=== PATIENT | male | born 1980 | race Caucasian/White ===

== ENCOUNTER 2017-07-08 07:33 | Inpatient (IN) | payer MEDICAID ==
[~2017-07-08] VITALS: Ht 170.2 cm; Wt 95.3 kg
[2017-07-08] VITALS: BP 117/69
--- NOTE | 2017-07-08 07:36 | NUR ---
PT BIB RA C/O R NECK/CLAVICLE SWELLING AND PAIN, WHICH APPEARS TO BE AN ABSCESS, THAT PT STATES HE THINKS IS A SPIDER BITE AND REPORTS HAS BEEN GETTING PROGRESSIVELY WORSE FOR 3 DAYS. SITE IS HOT AND TENDER. RESP EVEN UNLABORED. NO DIFFICULTY WITH SPEECH OR SWALLOWING. SKIN WARM DRY. NO OTHER COMPLAINTS. IN ER BED 13.
[2017-07-08] MEDS ORDERED: ONDANSETRON HCL/PF 4 MG/2 ML VIAL ONE (07:45)
[2017-07-08] MEDS ORDERED: MORPHINE SULFATE INJ 4 MG/ML DISP.SYRIN ONE ×2 (07:46→09:41)
[2017-07-08] MEDS ORDERED: IV NS 0.9% 1,000 ML BAG IV ONE (08:00)
[2017-07-08] MEDS ORDERED: MORPHINE SULFATE INJ 2 MG/ML DISP.SYRIN IV ONE (08:00)
[2017-07-08] MEDS ORDERED: VANCOMYCIN 1 GM in IV D5W 250 ML IV ONE (08:00)
[2017-07-08] MEDS ORDERED: PIPERACILLIN /TAZOBACTAM 3.375 G in IV D5W 50 ML IV ONE (08:00)
[2017-07-08] MEDS ORDERED: ONDANSETRON HCL/PF 4 MG/2 ML VIAL IVP ONE (08:00)
[2017-07-08 08:18] LABS: BASOPHILS % (AUTO) 0.1 % (0.0-2.0); EOSINOPHILS % (AUTO) 0.1 % (0.0-6.0); HEMATOCRIT 43 % (39-51); HEMOGLOBIN 14.4 g/dL (13.5-17.5); LYMPHOCYTES # (AUTO) 1.4 /CMM (0.8-4.8); LYMPHOCYTES % (AUTO) 9.3 % (20.0-44.0); MEAN CORPUSCULAR HGB CONC 34 g/dl (31.0-36.0); MEAN CORPUSCULAR VOLUME 85 fL (80-96); MONOCYTES # (AUTO) 1.1 /CMM (0.1-1.30); MONOCYTES % (AUTO) 7.4 % (2.0-12.0); NEUTROPHILS # (AUTO) 12.2 /CMM (1.8-8.9); NEUTROPHILS % (AUTO) 83.1 % (43.0-81.0); PLATELET COUNT (AUTO) 471 /CMM (150-450); RDW COEFFICIENT OF VARIATION 13.2 (11.5-15.0); RED BLOOD CELL COUNT(AUTO) 5.02 MIL/uL (4.5-6.0); WHITE BLOOD COUNT (AUTO) 14.6 K/uL (4.3-11.0)
[2017-07-08 08:23] LABS: CALCIUM, SERUM 8.8 mg/dL (8.5-10.1); CREATININE 0.9 mg/dL (0.6-1.3); POTASSIUM 3.8 mmol/L (3.5-5.1)
[2017-07-08] MEDS ORDERED: PIPERACILLIN /TAZOBACTAM 3.375 G VIAL IV ONE (08:26)
[2017-07-08] MEDS ORDERED: VANCOMYCIN 1 GM VIAL ONE (08:26)
[2017-07-08 08:41] LABS: INR 0.98 (0.87-1.13)
[2017-07-08] MEDS ORDERED: IOHEXOL-300 100 ML VIAL IV ONE (08:41)
[2017-07-08] MEDS ORDERED: IV NS 0.9% 250 ML IV ONE (08:42)
[2017-07-08] MEDS ORDERED: CT SWABBABLE VALVE TRANS SET 1 EA INFUS.SET MC ONE (08:42)
--- NOTE | 2017-07-08 09:25 | NUR ---
LEFT MESSAGE WITH DR [employer] ASKING FOR CALLBACK
--- NOTE | 2017-07-08 09:32 | NUR ---
DR MEMBRENO ON PHONE WITH DR HUBBARD
--- NOTE | 2017-07-08 09:33 | NUR ---
panel on-call paged
--- NOTE | 2017-07-08 09:35 | NUR ---
REPORT GIVEN TO JULISSA CHRISTENSEN FOR ADMISSION
[2017-07-08] MEDS ORDERED: MORPHINE SULFATE INJ 4 MG/ML DISP.SYRIN IV STA (09:40)
--- NOTE | 2017-07-08 09:52 | NUR ---
PT TRANSPORTED TO [facility] IN STABLE CONDITION VIA STRETCHER
[2017-07-08 10:30] VITALS: BP 129/81
[2017-07-08] MEDS ORDERED: MAGNESIUM HYDROXIDE 30 ML UDC PO PRN (10:30)
[2017-07-08] MEDS ORDERED: HYDROCODONE/APAP 5/325MG 1 EACH TABLET PO PRN (10:30)
[2017-07-08] MEDS ORDERED: Z GUARD REMEDY 2 OZ OINT TP PRN (10:30)
[2017-07-08] MEDS ORDERED: ONDANSETRON HCL/PF 4 MG/2 ML VIAL IVP PRN (10:30)
[2017-07-08] MEDS ORDERED: MAG HYDROX/AL HYDROX/SIMETH 30 ML UDC PO PRN (10:30)
[2017-07-08] MEDS ORDERED: ACETAMINOPHEN 325 MG TABLET PO PRN (10:30)
--- NOTE | 2017-07-08 10:30 | NUR ---
RN NOTE RECEIVED PT ON BED AOX4, NO SOB, CO PAIN IN HIS NECK, R SIDE NECK AND SHOULDER SWOLLEN, TENDER, WARM, REDNESS, PAIN LEVEL 10/10. IV SITE INTACT, INFUSING BOLUS AND VANCOMYCIN. PT CLAIMS TO BE HOMELESS AND LIVING IN THE [facility]. WOULD LIKE REFERRAL TO A [facility] UPON DISCHARGE. SAFETY MEASURES IMPLEMENTED, CALL LIGHT WITHIN REACH, WILL MONITOR.
[2017-07-08] MEDS: IV NS 0.9% 1,000 ML IV PRN (11:51)
[2017-07-08] MEDS: MORPHINE SULFATE INJ 4 MG/ML DISP.SYRIN IV PRN ×3 (11:51→22:04)
[2017-07-08] MEDS ORDERED: FEE PK DOSING 1 MIN EA MC ONE (15:25)
[2017-07-08 16:00] VITALS: BP 119/77
[2017-07-08] MEDS: VANCOMYCIN 1 GM in IV D5W 250 ML IV SCH (18:10)
--- NOTE | 2017-07-08 19:30 | NUR ---
RN OPENING NOTES RECEIVED REPORT FROM JULISSA CHRISTENSEN. PATIENT A/A/O X4, ABLE TO VERBALIZE NEEDS. BREATHING EVEN & UNLABORED, TOLERATING ROOM AIR. DENIES ANY SOB OR DIFFICULTY BREATHING. SKIN WARM, DRY & INTACT W/ PULSES PRESENT. RIGHT NECK ABSCESS NOTED W/ YELLOWISH DISCHARGE. DRESSING REINFORCED. LEFT AC IV #18 INTACT & PATENT W/ DRESSING CDI & IVF NS @ 75 ML/HR. C/O PAIN ON RIGHT NECK W/ 7 ON 0-10 PAIN SCALE. PATIENT ABLE TO AMBULATE W/ STEADY GAIT & USE URINAL. SAFETY MEASURES MAINTAINED W/ CALL LIGHT WITHIN REACH. INSTRUCTED TO CALL FOR ASSISTANCE. WILL CONTINUE TO MONITOR.
[2017-07-08 20:00] VITALS: BP 117/69
[2017-07-09] MEDS: VANCOMYCIN 1 GM in IV D5W 250 ML IV SCH ×3 (02:07→18:11)
[2017-07-09] MEDS: MORPHINE SULFATE INJ 4 MG/ML DISP.SYRIN IV PRN ×4 (02:17→18:12)
[2017-07-09 04:00] VITALS: BP 105/64
[2017-07-09] MEDS: IV NS 0.9% 1,000 ML IV PRN (06:18)
[2017-07-09 07:16] LABS: BASOPHILS # (AUTO) 0.1 /CMM (0.0-0.2); BASOPHILS % (AUTO) 0.7 % (0.0-2.0); EOSINOPHILS % (AUTO) 3.2 % (0.0-6.0); HEMATOCRIT 37 % (39-51); HEMOGLOBIN 12.5 g/dL (13.5-17.5); LYMPHOCYTES % (AUTO) 25.7 % (20.0-44.0); MEAN CORPUSCULAR HGB CONC 34 g/dl (31.0-36.0); MEAN CORPUSCULAR VOLUME 85 fL (80-96); MONOCYTES # (AUTO) 0.7 /CMM (0.1-1.30); MONOCYTES % (AUTO) 9.4 % (2.0-12.0); NEUTROPHILS # (AUTO) 4.8 /CMM (1.8-8.9); PLATELET COUNT (AUTO) 379 /CMM (150-450); RDW COEFFICIENT OF VARIATION 13.3 (11.5-15.0); RED BLOOD CELL COUNT(AUTO) 4.37 MIL/uL (4.5-6.0); WHITE BLOOD COUNT (AUTO) 7.9 K/uL (4.3-11.0)
--- NOTE | 2017-07-09 07:19 | NUR ---
WOUND CARE CONSULT WOUND CARE RECEIVED CONSULT FOR NECK ABSCESS. WOUND CARE WILL DEFER CONSULT AND TREATMENT PLAN TO SURGICAL TEAM THEY ARE CURRENTLY FOLLOWING. PATIENT WITH HERMAN AT 22.
[2017-07-09] MEDS ORDERED: LIDOCAINE 1%-EPI 1:100,000 20 ML VIAL TP ONE (07:30)
[2017-07-09 07:46] LABS: CALCIUM, SERUM 8.5 mg/dL (8.5-10.1); CREATININE 0.8 mg/dL (0.6-1.3); MAGNESIUM 1.8 mg/dL (1.8-2.4); PHOSPHORUS 3.9 mg/dL (2.5-4.9); POTASSIUM 4.4 mmol/L (3.5-5.1)
[2017-07-09 08:00] VITALS: BP 117/56
[2017-07-09] MEDS: NICOTINE PATCH (21MG) 21 MG PATCH.TD24 TD SCH (09:04)
--- NOTE | 2017-07-09 11:45 | NUR ---
Social service consult requested by Dr. Bhandari for homelessness. Pt. is a 36 year old male who was admitted to [facility] for an abscess. SW met with pt. bedside. Pt. is alert and oriented x 4. Pt. was cooperative with SW during the assessment. Pt. is currently homeless. Pt. moved to [facility] from [place] for a better life two and a half year ago and has been homeless since then. Pt. lives in a tent in the streets. SW offered pt. halfway placement, however pt. declined. Pt. is willing to take homeless resources. Pt. denies alcohol use. Pt. smokes marijuana and cigarettes. Pt. smokes a pack a day. Pt. receives food stamps and will be applying for General Relief. SW encouraged pt. to stop smoking. Pt. currently has a nicotine patch while hospitalized. Pt. denies any psychiatric diagnoses. CARLIN gave pt. list of referrals to homeless shelters which include [facility] ; [facility] ; [facility] and [facility] . No other social service needs are required at this time. SW is available, if needed.
--- NOTE | 2017-07-09 19:39 | NUR ---
MS RN NOTES RECEIVED PT ON BED SLEEPING. ALERT ORIENTED X4. ON ROOM AIR SATURATING WELL. NO SIGN OF RESPIRATORY DISTRESS. IV ACCESS ON LAC #18 NS 75CC/HR PATENT AND RUNNING WELL. HEAD OF BED ELEVATED. SIDE RAILS UP. CALL LIGHT WITHIN REACH. BED ALARM ON. WILL CONITNUE TO MONITOR PT CLOSELY.
[2017-07-09 20:00] VITALS: BP 117/69
[2017-07-10] MEDS: MORPHINE SULFATE INJ 4 MG/ML DISP.SYRIN IV PRN ×2 (00:25→04:29)
--- NOTE | 2017-07-10 00:39 | NUR ---
MS RN NOTES PATIENT REFUSED WOUND CARE ON HIS RIGHT NECK. VERBALIZED THAT HE WANTS IT IN THE MORNING AND HE WANTS TO REST.
[2017-07-10] MEDS: ZOLPIDEM TARTRATE 5 MG TABLET PO PRN ×2 (01:14→21:23)
[2017-07-10] MEDS: VANCOMYCIN 1 GM in IV D5W 250 ML IV SCH ×3 (01:14→17:31)
[2017-07-10 04:00] VITALS: BP 100/63
[2017-07-10] MEDS: IV NS 0.9% 1,000 ML IV PRN (05:10)
--- NOTE | 2017-07-10 06:25 | NUR ---
MS RN NOTES NO ACUTE CHANGES NOTED DURING THE SHIFT. DUE MEDS GIVEN. PROVIDED COMFORT AND SAFETY. WILL ENDORSE TO THE AM NURSE.
[2017-07-10 06:40] LABS: CALCIUM, SERUM 8.7 mg/dL (8.5-10.1); CREATININE 0.8 mg/dL (0.6-1.3); POTASSIUM 4.9 mmol/L (3.5-5.1)
--- NOTE | 2017-07-10 07:47 | NUR ---
M/S RN NOTE: RECEIVED PATIENT IN BED, ASLEEP, BUT AROUSABLE WHEN CALLING HIS NAME. RESPIRATION IS EVEN AND UNLABORED. SATURATING WELL IN ROOM AIR 96%. DENIED ANY PAIN AT THIS TIME. NOTED W/ AN ABDOMINAL DRESSING ON HIS (R) NECK. PATIENT REQUESTED FOR HIS DOOR TO BE SHUT CLOSE IN ORDER FOR HIM TO GET ENOUGH REST. (L) AC IV PERIPHERAL LINE NOTED PATENT AND INTACT INFUSING NS@75CC/HR. HOB ELEVATED. BED LOCKED AT ALL TIMES. CALL LIGHT WITHIN REACH.
[2017-07-10 08:00] VITALS: BP 101/65
[2017-07-10] MEDS: NICOTINE PATCH (21MG) 21 MG PATCH.TD24 TD SCH (09:16)
[2017-07-10] MEDS ORDERED: LORAZEPAM INJ 2 MG/ML VIAL IV PRN (11:00)
--- NOTE | 2017-07-10 11:10 | NUR ---
M/S RN NOTE: PATIENT WAS NOTED YELLING AND SCREAMING AND VERBALIZED THAT HE WAS GETTING ANNOYED W/ THE IV PUMP BEEPING AND THAT HE CAN NOT GET ENOUGH REST. EXPLAINED TO THE PATIENT THAT HE DOES NOT HAVE TO YELL AND SCREAM, BUT PUSH THE CALL LIGHT BUTTON FOR ASSISTANCE. PATIENT WAS ALSO TOLD NOT TO CLOSE HIS ROOM THIS TIME SO THE NURSES CAN MONITOR HIM OR SEE IF THERE IS SOMETHING WRONG IN HIS IV PUMP. PATIENT AGREED. STACI BERMUDEZ NP WAS IN THE UNIT AND GAVE NEW ORDERS FOR THE PATIENT. PATIENT CALMED DOWN AFTER SPEAKING W/ THE NURSE AND MISHA SMALL.
[2017-07-10] MEDS ORDERED: MORPHINE SULFATE INJ 4 MG/ML DISP.SYRIN IV PRN (11:30)
[2017-07-10] MEDS ORDERED: FENTANYL PF 100MCG/2ML AMPUL IV PRN (11:30)
[2017-07-10] MEDS: CADEXOMER IODINE 40 GM TUBE TP SCH (15:07)
[2017-07-10 16:00] VITALS: BP 108/68
[2017-07-10] MEDS: HYDROCODONE/APAP 10/325MG 1 EA TABLET PO PRN ×2 (18:47→23:56)
--- NOTE | 2017-07-10 19:28 | NUR ---
M/S RN NOTE: PATIENT REMAINED ON STABLE CONDITION. C/O PAIN ON HIS (R) NECK WOUND S/P I&D AND NORCO 10-325MG PO WAS GIVEN MD ORDER. HOB ELEVATED. BED LOCKED AT ALL TIMES. CALL LIGHT WITHIN REACH. REPORT GIVEN TO PM SHIFT NURSE FOR CONTINUITY OF CARE.
[2017-07-10 20:00] VITALS: BP 117/57
--- NOTE | 2017-07-10 20:00 | NUR ---
ms rn notes received pts in bed awake and responsive ,no sob no distress noted , v/s stable afebrile , no sob no distress noted , due meds given as ordered all needs attended to call light within reach ,continue on hydration well tolerated , kept pts comfortable.
[2017-07-11] MEDS: VANCOMYCIN 1 GM in IV D5W 250 ML IV SCH ×2 (01:44→10:00)
--- NOTE | 2017-07-11 01:45 | NUR ---
MS RN NOTES VANCOMYCIN 1 GM GIVEN ORDERED WITH NO ASE NOTED.
--- NOTE | 2017-07-11 03:14 | NUR ---
MS RN NOTES PTS COMFORTABLE IN BED
[2017-07-11 04:00] VITALS: BP 102/52
--- NOTE | 2017-07-11 06:30 | NUR ---
MS RN NOTES PTS REMAINS IN BED AWAKE AND RESPONSIVE , NO SIGNIFICANCE CHANGE NOTED , WILL ENDORSE TO RN DAY SHIFT FOR CONTINUITY OF CARE.
--- NOTE | 2017-07-11 07:45 | NUR ---
M/S RN NOTE: RECEIVED PATIENT IN BED, ASLEEP, BUT EASILY WOKE UP UPON ENTERING THE ROOM. RESPIRATION IS EVEN AND UNLABORED. DENIED ANY PAIN AT THIS TIME. HOB ELEVATED. (L) AC IV PERIPHERAL LINE NOTED PATENT AND INTACT W/ TRANSPARENT DRESSING IN PLACED. AFEBRILE. NOTED W/ DRESSING ON THE (R) NECK WOUND. BED LOCKED AT ALL TIMES. PATIENT USED THE BATHROOM OR URINAL. NOTED W/ STEADY GAIT. CALL LIGHT WITHIN REACH.
[2017-07-11 07:56] LABS: CREATININE 0.9 mg/dL (0.6-1.3); POTASSIUM 4.7 mmol/L (3.5-5.1)
[2017-07-11 08:00] VITALS: BP 107/63
[2017-07-11] MEDS: CADEXOMER IODINE 40 GM TUBE TP SCH (08:58)
[2017-07-11] MEDS: NICOTINE PATCH (21MG) 21 MG PATCH.TD24 TD SCH (08:58)
[2017-07-11] MEDS: HYDROCODONE/APAP 10/325MG 1 EA TABLET PO PRN (09:02)
--- NOTE | 2017-07-11 10:23 | NUR ---
M/S RN NOTE: CALLED AND SPOKE W/ GAVINO FROM THE PHARMACY AND INFORMED HER ABOUT THE VANCOMYCIN TROUGH OF 24. PER GAVINO, DOSE WILL BE HOLD FOR TODAY. PATIENT MADE AWARE.
[2017-07-11] MEDS ORDERED: NICO-677 TD (15:17)
[2017-07-11] MEDS ORDERED: SULF1TAB47 PO (15:17)
[2017-07-11] MEDS ORDERED: CADE40GE2 TP (15:17)
[2017-07-11 16:00] VITALS: BP 126/78
--- NOTE | 2017-07-11 16:15 | NUR ---
M/S RN NOTE: PATIENT WAS DISCHARGED TO THE HOSPITAL AND ACCORDING TO THE PATIENT HE WILL TRY TO GO TO HIS FRIEND'S HOUSE, BUT REFUSED TO GIVE DETAILS ABOUT IT. PATIENT WAS GIVEN DISCHARGE INSTRUCTIONS REGARDING HIS WOUND CARE AND THE PRESCRIPTION FOR BACTRIM, NICODERM PATCH AND IODOSORB. PATIENT UNDERSTOOD AND RECEIVED ALL HIS BELONGINGS AND PAPERWORK REGARDING HIS HOSPITALIZATION. TOOK A PICTURE OF THE (R) NECK WOUND AND PATIENT AGREED TO REMOVE THE PACKING ON IT. FILED ON THE PATIENT'S CHART. PATIENT'S (L) AC IV PERIPHERAL LINE WAS REMOVED. GAVE PATIENT 2 BUS TOKEN. PATIENT LEFT THE HOSPITAL AND WAS ESCORTED TO THE HOSPITAL'S MAIN LOBBY W/ NO PAIN OR DISCOMFORT. NO DIZZINESS AND REMAINED ON STEADY GAIT.
[2017-07-11] MEDS ORDERED: VANCOMYCIN 1 GM in IV D5W 250 ML IV SCH (18:00)
== END 2017-07-11 16:19 | disposition home or self-care (01) | DRG 710 ==
LOC: ER 07:35 → MEDSG1 09:34
PROVIDERS: ADMIT Internal Medicine; ATTEND Internal Medicine
PROC: 0J940ZZ Drainage of Right Neck Subcutaneous Tissue and Fascia, Open Approach (ICD-10-PCS; principal; 2017-07-09)
DX: A41.9 Sepsis, unspecified organism (principal); E87.1 Hypo-osmolality and hyponatremia; L03.221 Cellulitis of neck; L02.11 Cutaneous abscess of neck; Z59.0 Homelessness; F12.929 Cannabis use, unspecified with intoxication, unspecified; F17.200 Nicotine dependence, unspecified, uncomplicated; S10.96XA Insect bite of unspecified part of neck, initial encounter; W57.XXXA Bitten or stung by nonvenomous insect and other nonvenomous arthropods, initial encounter; Y92.9 Unspecified place or not applicable; Z98.890 Other specified postprocedural states; D47.3 Essential (hemorrhagic) thrombocythemia; B96.89 Other specified bacterial agents as the cause of diseases classified elsewhere
CPT/HCPCS: 36415; 70491-TC; 71045-TC; 80048-TC; 80202-TC; 83605-TC; 83735-TC; 84100-TC; 85025-TC; 85730-TC; 87040-TC; 87070-TC; 87081-TC; A4606; A6253; A6402; A6403; J2060; J2270; J2405; J2543; J3370; J3490; J7030; J7050; J7060; Q9967; Z7610

== ENCOUNTER 2018-11-01 00:14 | Emergency (ER) | payer SELFPAY ==
[~2018-11-01] VITALS: Ht 170.2 cm; Wt 59.0 kg
[~2018-11-01 00:14] MED LIST: CADE40GE2 TP; NICO-677 TD; SULF1TAB47 PO
[2018-11-01] MEDS ORDERED: KETOROLAC TROMETHAMINE INJ 30 MG/ML VIAL IM ONE (02:30)
[2018-11-01] MEDS ORDERED: HYDROCODONE/APAP 10/325MG 1 EA TABLET PO ONE (02:30)
[2018-11-01] MEDS ORDERED: TDAP [DIPH/PERTUSSIS/TET] 0.5 ML VIAL IM ONE ×2 (02:30→02:32)
[2018-11-01] MEDS ORDERED: HYDROCODONE/APAP 10/325MG 1 EA TABLET ONE (02:32)
[2018-11-01] MEDS ORDERED: KETOROLAC TROMETHAMINE INJ 30 MG/ML VIAL ONE (02:32)
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
--- NOTE | 2018-11-01 06:14 | NUR ---
I&D DONE AT THE BED SIDE BY . PT TOLERATED THE PROCEDURE WELL. WOUND COVERED BY DD ORDERED
--- NOTE | 2018-11-01 06:39 | NUR ---
Patient discharged to home in stable condition. Rx and Written and verbal after care instructions given. Patient verbalizes understanding of instruction.
[2018-11-01 06:43] VITALS: BP 145/87
== END 2018-11-01 06:45 | disposition home or self-care (01) ==
LOC: ER 00:17
DX: S62.102A Fracture of unspecified carpal bone, left wrist, initial encounter for closed fracture (principal); S30.0XXA Contusion of lower back and pelvis, initial encounter; S20.211A Contusion of right front wall of thorax, initial encounter; S40.012A Contusion of left shoulder, initial encounter; S40.011A Contusion of right shoulder, initial encounter; S50.12XA Contusion of left forearm, initial encounter; S71.002A Unspecified open wound, left hip, initial encounter; K13.0 Diseases of lips; F12.10 Cannabis abuse, uncomplicated; Z59.0 Homelessness; W18.09XA Striking against other object with subsequent fall, initial encounter; Y93.I9 Activity, other involving external motion; Y92.89 Other specified places as the place of occurrence of the external cause; Y99.8 Other external cause status
CPT/HCPCS: 10060; 29125; 71100 ×2; 73030 ×2; 73090 ×2; 73110; 90471; 90715; 96372; 99283; A6403; A6407; J1885